=== PATIENT | male | born 1990 | race Caucasian/White ===

== ENCOUNTER 2020-01-05 22:28 | Emergency (ER) | payer OTHER ==
[~2020-01-05] VITALS: Ht 186 cm; Wt 75.0 kg
[2020-01-05 23:17] VITALS: TEMP 98
[2020-01-06 01:33] LABS: HEMATOCRIT 44.8 % (42.0-52.0); HEMOGLOBIN 14.9 g/dl (13.5-18.0); MEAN CELL VOLUME 86 fl (80.0-100.0); MEAN CORPUSCULAR HEMOGLOBIN 29 pg (27.0-31.0); MEAN CORPUSCULAR HGB CONC 33 g/dl (33.0-37.0); MEAN PLATELET VOLUME 10.4 fl (7.4-10.4); PLATELET COUNT 232 K/mm3 (130-400); RED BLOOD COUNT 5.21 M/mm3 (4.20-5.60); REDCELL DISTRIBUTION WIDTH-CV 12.6 % (11.5-14.5)
[2020-01-06 01:44] LABS: ALBUMIN 4.9 gm/dL (3.5-5.0); C-REACTIVE PROTEIN 1.5 mg/dL (0.0-0.9); CREATININE, serum 0.74 (0.66-1.25); POTASSIUM 4.3 mmol/L (3.4-5.0); TOTAL PROTEIN 8.7 gm/dL (6.4-8.2)
[2020-01-06 02:14] LABS: BAND 23 % (0-10); LYMPHOCYTE 3 % (20.0-51.0); METAMYELOCYTE 1 % (0-0); NEUTROPHILS 71 % (42.0-75.2); PLATELET ESTIMATE NORMAL (NORMAL)
[2020-01-06] MEDS ORDERED: ZOFRAN ODT4 MG PO (02:45)
[2020-01-06 02:59] LABS: COLLECTION METHOD CLEAN CATCH
[2020-01-06 03:12] LABS: MUCOUS Present /lpf; PH 7 (5-8); SQUAMOUS EPITHELIAL 0-2 /hpf; URINE APPEARANCE Clear; URINE BACTERIA None Seen /hpf; URINE BILIRUBIN Negative (NEGATIVE); URINE BLOOD Negative (NEGATIVE); URINE COLOR Yellow; URINE GLUCOSE Negative (NEGATIVE); URINE KETONE Trace (NEGATIVE); URINE LEUKOCYTE ESTERASE Negative (NEGATIVE); URINE NITRATE Negative (NEGATIVE); URINE PROTEIN(semi-quant) 1+ (NEGATIVE); URINE RBC 0-2 /hpf; URINE UROBILINOGEN Negative (NEGATIVE)
[2020-01-06 03:30] VITALS: BP 121/80; PULSE 79
== END 2020-01-06 03:30 | disposition home or self-care (01) ==
LOC: COL.ER 22:28
PROVIDERS: Nurse Practitioner
DX: R11.10 Vomiting, unspecified (principal); R10.11 Right upper quadrant pain
CPT/HCPCS: J1885; J2405; J7030; Q9967